=== PATIENT | male | born 1965 | race Caucasian/White ===

== ENCOUNTER 2017-06-12 06:02 | Day surgery (SDC) | payer BC ==
[~2017-06-12] VITALS: Ht 177.8 cm; Wt 99.8 kg
[~2017-06-12 06:02] MED LIST: AMOXICILLIN/CL875 MG OR; AVELOX400 MG PO; BENADRYL 50MG C50 MG PO; FLONASE0.05 %; MEDDOSEPAK OR; MEDDOSEPAK PO; ONDANSETRON4 MG PO; PEPCID20 MG PO; PREVACID30 M2 PO; PROBENECID/COLC1 TAB PO; PT TAKES NO MEDS; TRAMADOL HCL50 MG PO; ULTRAM50 MG PO
[2017-06-12 09:19] VITALS: BP 134/82
== END 2017-06-12 09:50 | disposition home or self-care (01) | DRG 951 ==
LOC: ENDO 06:02
PROVIDERS: ATTEND Surgery
PROC: 0DBF8ZX Excision of Right Large Intestine, Via Natural or Artificial Opening Endoscopic, Diagnostic (ICD-10-PCS; principal; 2017-06-12)
DX: Z12.11 Encounter for screening for malignant neoplasm of colon (principal); D12.2 Benign neoplasm of ascending colon; K57.30 Diverticulosis of large intestine without perforation or abscess without bleeding; Z01.818 Encounter for other preprocedural examination; I34.1 Nonrheumatic mitral (valve) prolapse; Z97.2 Presence of dental prosthetic device (complete) (partial)

== ENCOUNTER → 2019-02-06 | Outpatient (REF) ==
[2019-02-06 09:54] LABS: CHOLESTEROL HDL RATIO 4.7 (<4.4 (CALC))
== END | disposition home or self-care (01) | DRG 951 ==
LOC: LAB 08:41
PROVIDERS: ATTEND Family Medicine
DX: Z02.6 Encounter for examination for insurance purposes (principal)

== ENCOUNTER 2021-07-21 12:44 | Observation (INO) | payer OTHER ==
[~2021-07-21] VITALS: Ht 177.8 cm; Wt 100.0 kg
[~2021-07-21 12:44] MED LIST changes: +BOSWELLIA PO; +TIZANIDINE2 MG PO; +TURMERI1 PO; +ZOFRAN4 MG/TAB PO
[2021-07-21 14:15] LABS: IMMATURE GRANULOCYTES 0.7 % (0.0-5.0); MEAN CELL VOLUME 91.6 fL CALC (80.0-100.0); MEAN CORPUSCULAR HGB CONC 32.8 g/dL CAL (32.0-36.0); NEUT# 6.26 thou/uL (1.82-7.42); RED BLOOD COUNT 5.8 mill/uL (4.70-6.10); RED CELL DISTRI WIDTH 13.5 % (11.5-15.5)
[2021-07-21 14:20] LABS: HEMATOCRIT 53.1 % (39.0-50.0); HEMOGLOBIN 17.4 g/dl (14.0-18.0)
[2021-07-21 14:38] LABS: ALBUMIN 3.8 g/dL (3.2-5.0); ALKALINE PHOSPHATASE 48 u/l (38-126); ANION GAP 16 (6-22 (CALC)); BUN 21 mg/dL (9-20); BUN/CREATININE RATIO 24 (12-20 (CALC)); C-REACTIVE PROTEIN 5.6 mg/dL (0-0.9); CARBON DIOXIDE 24 mmol/l (22-30); CHLORIDE 99 mmol/l (95-108); CREATININE 0.9 mg/dL (0.7-1.3); GFR > 60 ML/MIN (>=60 (CALC)); GFR FOR AFR.AMER. > 60 ML/MIN (>=60 (CALC)); POTASSIUM 4.1 mmol/l (3.5-5.1); SODIUM 135 mmol/l (137-146); TOTAL PROTEIN 7.4 g/dL (6.3-8.2)
[2021-07-21 14:44] LABS: BILIRUBIN, TOTAL 0.7 mg/dL (0.0-1.4); SGOT/AST 38 u/l (17-59)
[2021-07-21 19:30] VITALS: BP 130/70
[2021-07-21 23:56] VITALS: BP 119/62
[2021-07-22 04:00] VITALS: BP 108/56
[2021-07-22 05:48] LABS: IMMATURE GRANULOCYTES 0.3 % (0.0-5.0); MEAN CELL VOLUME 90.6 fL CALC (80.0-100.0); MEAN CORPUSCULAR HGB 30.1 pG CALC (26.0-32.0); MEAN CORPUSCULAR HGB CONC 33.2 g/dL CAL (32.0-36.0); NEUT# 5.79 thou/uL (1.82-7.42); RED BLOOD COUNT 5.12 mill/uL (4.70-6.10); RED CELL DISTRI WIDTH 13.1 % (11.5-15.5)
[2021-07-22 05:49] LABS: HEMATOCRIT 46.4 % (39.0-50.0); HEMOGLOBIN 15.4 g/dl (14.0-18.0)
[2021-07-22 06:41] LABS: ALBUMIN 3.1 g/dL (3.2-5.0); ALKALINE PHOSPHATASE 47 u/l (38-126); ANION GAP 14 (6-22 (CALC)); BILIRUBIN, TOTAL 0.5 mg/dL (0.0-1.4); BUN 20 mg/dL (9-20); BUN/CREATININE RATIO 28 (12-20 (CALC)); CARBON DIOXIDE 24 mmol/l (22-30); CHLORIDE 101 mmol/l (95-108); CREATININE 0.7 mg/dL (0.7-1.3); GFR > 60 ML/MIN (>=60 (CALC)); GFR FOR AFR.AMER. > 60 ML/MIN (>=60 (CALC)); POTASSIUM 4.3 mmol/l (3.5-5.1); SGOT/AST 38 u/l (17-59); SODIUM 135 mmol/l (137-146)
[2021-07-22 07:00] LABS: C-REACTIVE PROTEIN 12.7 mg/dL (0-0.9)
[2021-07-22 08:51] VITALS: BP 129/74
[2021-07-22 10:50] VITALS: BP 119/74
[2021-07-22 14:55] VITALS: BP 137/69
[2021-07-22 20:00] VITALS: BP 134/77
[2021-07-23] VITALS: BP 121/63
[2021-07-23 04:00] VITALS: BP 127/71
[2021-07-23 05:09] LABS: HEMATOCRIT 45.9 % (39.0-50.0); HEMOGLOBIN 15.2 g/dl (14.0-18.0); IMMATURE GRANULOCYTES 0.4 % (0.0-5.0); MEAN CELL VOLUME 90.9 fL CALC (80.0-100.0); MEAN CORPUSCULAR HGB 30.1 pG CALC (26.0-32.0); MEAN CORPUSCULAR HGB CONC 33.1 g/dL CAL (32.0-36.0); RED BLOOD COUNT 5.05 mill/uL (4.70-6.10)
[2021-07-23 05:30] LABS: ALKALINE PHOSPHATASE 45 u/l (38-126); ANION GAP 12 (6-22 (CALC)); BILIRUBIN, TOTAL 0.3 mg/dL (0.0-1.4); BUN 26 mg/dL (9-20); BUN/CREATININE RATIO 36 (12-20 (CALC)); C-REACTIVE PROTEIN 6.4 mg/dL (0-0.9); CARBON DIOXIDE 25 mmol/l (22-30); CHLORIDE 102 mmol/l (95-108); CREATININE 0.7 mg/dL (0.7-1.3); GFR > 60 ML/MIN (>=60 (CALC)); GFR FOR AFR.AMER. > 60 ML/MIN (>=60 (CALC)); POTASSIUM 4.5 mmol/l (3.5-5.1); SGOT/AST 39 u/l (17-59); SODIUM 135 mmol/l (137-146); TOTAL PROTEIN 5.9 g/dL (6.3-8.2)
[2021-07-23 09:15] VITALS: BP 132/80
[2021-07-23 11:42] VITALS: BP 140/76
[2021-07-23] MEDS ORDERED: DEXAMETHASON6 MG PO (11:45)
[2021-07-23] MEDS ORDERED: TESSALON PERLE100 MG PO (11:46)
[2021-07-23] MEDS ORDERED: ZITHROMAX250 MG PO (11:47)
[2021-07-23] MEDS ORDERED: ASPIRIN REGULA325 M1 PO (13:49)
[2021-07-23] MEDS ORDERED: PROVENTIL HFA IN (13:59)
[2021-07-23 16:23] VITALS: BP 134/71
== END 2021-07-23 17:52 | disposition home or self-care (01) | DRG 177 ==
LOC: ED 12:44 → ED-I 15:01 → ED 18:11 → MS2 18:12
PROVIDERS: Family Medicine; Nurse Practitioner; ADMIT Hospitalist; ATTEND Hospitalist
PROC: XW033E5 Introduction of Remdesivir Anti-infective into Peripheral Vein, Percutaneous Approach, New Technology Group 5 (ICD-10-PCS; principal; 2021-07-22)
DX: U07.1 COVID-19 (principal); J12.82 Pneumonia due to coronavirus disease 2019; R09.02 Hypoxemia; I34.1 Nonrheumatic mitral (valve) prolapse
CPT/HCPCS: G0378; J1650

== ENCOUNTER 2021-11-20 16:10 | Emergency (ER) | payer OTHER ==
[~2021-11-20] VITALS: Ht 177.8 cm; Wt 113.6 kg
[~2021-11-20 16:10] MED LIST changes: +ASPIRIN REGULA325 M1 PO; +DEXAMETHASON6 MG PO; +PROVENTIL HFA IN; +TESSALON PERLE100 MG PO; +ZITHROMAX250 MG PO
[2021-11-20 17:07] LABS: HEMATOCRIT 49.3 % (39.0-50.0); HEMOGLOBIN 16.4 g/dl (14.0-18.0); IMMATURE GRANULOCYTES 0.2 % (0.0-5.0); MEAN CELL VOLUME 91.5 fL CALC (80.0-100.0); MEAN CORPUSCULAR HGB 30.4 pG CALC (26.0-32.0); MEAN CORPUSCULAR HGB CONC 33.3 g/dL CAL (32.0-36.0); NEUT# 5.99 thou/uL (1.82-7.42); RED BLOOD COUNT 5.39 mill/uL (4.70-6.10); RED CELL DISTRI WIDTH 11.9 % (11.5-15.5)
[2021-11-20 17:19] LABS: ALKALINE PHOSPHATASE 53 u/l (38-126); ANION GAP 14 (6-22 (CALC)); BUN 24 mg/dL (9-20); BUN/CREATININE RATIO 23 (12-20 (CALC)); CARBON DIOXIDE 24 mmol/l (22-30); CHLORIDE 107 mmol/l (95-108); CREATININE 1.1 mg/dL (0.7-1.3); GFR > 60 ML/MIN (>=60 (CALC)); GFR FOR AFR.AMER. > 60 ML/MIN (>=60 (CALC)); POTASSIUM 4.2 mmol/l (3.5-5.1); SGOT/AST 26 u/l (17-59); SODIUM 140 mmol/l (137-146)
[2021-11-20 17:21] LABS: ALBUMIN 4.3 g/dL (3.2-5.0); BILIRUBIN, TOTAL 0.5 mg/dL (0.0-1.4); TOTAL PROTEIN 7.5 g/dL (6.3-8.2)
[2021-11-20 17:25] LABS: AMYLASE 77 u/l (30-110); LIPASE 55 u/l (23-300)
[2021-11-20] MEDS ORDERED: ULTRAM50 M1 PO (18:56)
[2021-11-20] MEDS ORDERED: ONDANSETRON4 MG PO (18:56)
[2021-11-20 19:35] VITALS: BP 127/72
== END 2021-11-20 19:35 | disposition home or self-care (01) | DRG 392 ==
LOC: ED 16:10
PROVIDERS: Emergency Medicine
DX: K52.9 Noninfective gastroenteritis and colitis, unspecified (principal); Z86.16 Personal history of COVID-19; Z20.822 Contact with and (suspected) exposure to COVID-19
CPT/HCPCS: Q9967

== ENCOUNTER 2021-11-26 00:36 | Emergency (ER) | payer OTHER ==
[~2021-11-26] VITALS: Ht 177.8 cm; Wt 109.0 kg
[~2021-11-26 00:36] MED LIST changes: +ULTRAM50 M1 PO
[2021-11-26 02:09] LABS: HEMATOCRIT 44.8 % (39.0-50.0); HEMOGLOBIN 14.8 g/dl (14.0-18.0); IMMATURE GRANULOCYTES 0.1 % (0.0-5.0); MEAN CORPUSCULAR HGB 30.4 pG CALC (26.0-32.0); NEUT# 4.75 thou/uL (1.82-7.42); RED BLOOD COUNT 4.87 mill/uL (4.70-6.10); RED CELL DISTRI WIDTH 11.9 % (11.5-15.5)
[2021-11-26 02:26] LABS: ALBUMIN 3.7 g/dL (3.2-5.0); ALKALINE PHOSPHATASE 40 u/l (38-126); ANION GAP 12 (6-22 (CALC)); BILIRUBIN, TOTAL 0.4 mg/dL (0.0-1.4); BUN 30 mg/dL (9-20); BUN/CREATININE RATIO 34 (12-20 (CALC)); CARBON DIOXIDE 23 mmol/l (22-30); CHLORIDE 109 mmol/l (95-108); CREATININE 0.9 mg/dL (0.7-1.3); GFR > 60 ML/MIN (>=60 (CALC)); GFR FOR AFR.AMER. > 60 ML/MIN (>=60 (CALC)); POTASSIUM 4.2 mmol/l (3.5-5.1); SGOT/AST 21 u/l (17-59); SODIUM 141 mmol/l (137-146); TOTAL PROTEIN 6.6 g/dL (6.3-8.2)
[2021-11-26] MEDS ORDERED: MEDDOSEPAK PO (02:42)
[2021-11-26] MEDS ORDERED: LORTAB 1010 MG PO (02:42)
[2021-11-26 02:51] VITALS: BP 141/79
== END 2021-11-26 03:07 | disposition home or self-care (01) | DRG 554 ==
LOC: ED 00:36
PROVIDERS: Emergency Medicine
DX: M10.072 Idiopathic gout, left ankle and foot (principal); Z86.16 Personal history of COVID-19